=== PATIENT | female | born 1985 | race Caucasian/White ===

== ENCOUNTER 2016-07-20 03:46 | Inpatient (IN) | payer MEDICAID ==
[2016-07-20] MEDS ORDERED: Sodium Chloride 0.9% 10 ML Syringe FLUSH PRN (17:36)
[2016-07-20] MEDS ORDERED: Ondansetron 4 MG/2 ML SDV IVPUSH PRN (17:36)
[2016-07-20] MEDS ORDERED: Nalbuphine 20 MG/1 ML Amp IVPUSH PRN (17:36)
[2016-07-20] MEDS: Lactated Ringers 1,000 ML IV SCH ×2 (18:19→19:56)
--- NOTE | 2016-07-20 18:41 | PCM.LDHP ---
L&D History of Present Illness - General Date of Service: 07/20/16 Admit Problem/Dx: Admission Diagnosis/Problem Admission Diagnosis/Problem Source of Information: Patient - History of Present Illness Introduction:: 30 year old female at 38w3 days here in labor with SROM clear fluid at about 10 pm. Contractions increasingly painful. No bleeding. - Related Data Allergies/Adverse Reactions: Allergies Allergy/AdvReac Type Severity Reaction Status Date / Time Penicillins Allergy Anaphylactic Verified 07/17/16 22:14 Shock Home Medications: Home Meds Abilify 2.5mg 2.5 mg PO DAILY 01/07/14 [History] Methylphenidate HCl [Ritalin] 54 mg PO DAILY 01/07/14 [History] traZODone 50 mg PO DAILY 10/13/15 [History] Past Medical History Psychiatric History: Reports: Developmental delay - Infectious Disease History Infectious Disease History: Reports: Chicken pox, Influenza - Past Surgical History HEENT Surgical History: Reports: Tonsillectomy, Other (see below) Other HEENT Surgeries/Procedures: nose surg GI Surgical History: Reports: Appendectomy Social & Family History - Tobacco Use Smoking Status *Q: Former Smoker Years of Tobacco use: 13 Packs/Tins Daily: 1 Used Tobacco, but Quit: Yes Month Tobacco Last Used: august Second Hand Smoke Exposure: No - Alcohol Use Days Per Week of Alcohol Use: 3 Number of Drinks Per Day: 3 Total Drinks Per Week: 9 - Recreational Drug Use Recreational Drug Use: No H&P Review of Systems - Review of Systems: Review Of Systems: See Below General: Reports: no symptoms HEENT: Reports: no symptoms Pulmonary: Reports: No Symptoms Cardiovascular: Reports: no symptoms Gastrointestinal: Reports: No symptoms Genitourinary: Reports: no symptoms Musculoskeletal: Reports: no symptoms Skin: Reports: no symptoms Psychiatric: Reports: no symptoms Neurological: Reports: No Symptoms Hematologic/Lymphatic: Reports: no symptoms Immunologic: Reports: no symptoms L&D Exam - Exam Exam: See Below - Vital Signs Vital Signs: Last Vital Signs Temp 37.2 C 07/20/16 17:36 Pulse 76 07/20/16 17:36 Resp 20 07/20/16 17:36 BP 113/77 07/20/16 17:36 Pulse Ox Weight: 64.093 kg - OB Specific Contraction Intensity: Moderate Heart Rate (FHR) Variability: Moderate (6-25 bmp) Presentation: Vertex - Andrews Score Andrews Score Cervix Position: Midposition Andrews Score Consistency: Soft Andrews Score Effacement: >80% Andrews Score Dilation: 3-4 cm Andrews Score 's Station: -2 Andrews Score Total: 9 - Exam General: alert, oriented HEENT: Conjunctiva clear Neck: supple Lungs: Clear to auscultation Cardiovascular: regular rate, regular rhythm Abdomen: normal bowel sounds, soft Genitourinary: Normal external exam Back Exam: normal inspection, full range of motion Extremities: normal inspection Skin: warm, dry, intact Neurological: cranial nerves intact, reflexes equal bilateral Psychiatric: alert, normal affect, normal mood Problem List Initiated/Reviewed/Updated: Yes Orders Last 24hrs: Active Orders 24 hr Category Date Time Status Activity as Tolerated [RC] PFP Care 07/20/16 17:36 Active Communication Order [RC] ASDIRECTED Care 07/20/16 17:36 Active Heart Tones [RC] ASDIRECTED Care 07/20/16 17:36 Active Notify Provider [RC] PFP Care 07/20/16 17:36 Active Notify Provider [RC] PRN Care 07/20/16 17:36 Active Peripheral IV Care [RC] . DIRECTED Care 07/20/16 17:36 Active Vital Signs [RC] PER UNIT ROUTINE Care 07/20/16 17:36 Active Clear Liquid Diet [DIET] Diet 07/20/16 Dinner Active CBC WITH AUTO DIFF [HEME] Urgent Lab 07/20/16 17:36 Ordered Lactated Ringers [Ringers, Lactated] 1,000 ml Med 07/20/16 17:45 Active IV ASDIRECTED Nalbuphine [Nubain] Med 07/20/16 17:36 Active 10 mg IVPUSH Q2H PRN Ondansetron [Zofran] Med 07/20/16 17:36 Active 4 mg IVPUSH Q4H PRN Sodium Chloride 0.9% [Saline Flush] Med 07/20/16 17:36 Active 10 ml FLUSH ASDIRECTED PRN Vancomycin [Vancocin] 1 gm Med 07/20/16 18:00 Active Sodium Chloride 0.9% [Normal Saline] 250 ml IV Q12H Electronic Heart Tones Ext w TOCO [WOMSER] Oth 07/20/16 17:36 Ordered Routine Electronic Heart Tones Internal [WOMSER] Per Unit Oth 07/20/16 17:36 Ordered Routine Peripheral IV Insertion Adult [OM.PC] Routine Oth 07/20/16 17:36 Ordered Resuscitation Status Routine Resus Stat 07/20/16 17:36 Ordered Medication Orders Lactated Ringer's (Ringers, Lactated) 1,000 mls @ 100 mls/hr IV ASDIRECTED RADHA Last Admin: 07/20/16 18:19 Dose: 100 mls/hr Vancomycin HCl 1 gm/ Sodium (Chloride) 250 mls @ 250 mls/hr IV Q12H [facility] Last Admin: 07/20/16 18:20 Dose: 250 mls/hr Nalbuphine HCl (Nubain) 10 mg IVPUSH Q2H PRN PRN Reason: Pain (moderate 4-6) Ondansetron HCl (Zofran) 4 mg IVPUSH Q4H PRN PRN Reason: Nausea/Vomiting Sodium Chloride (Saline Flush) 10 ml FLUSH ASDIRECTED PRN PRN Reason: Keep Vein Open Assessment/Plan Comment:: Term labor SROM GBS positive antibiotics started Anticipate unless otherwise indicated
[2016-07-20] MEDS ORDERED: fentaNYL 100 MCG/2 ML SDV EPIDUR PRN (19:28)
[2016-07-20] MEDS ORDERED: diphenhydrAMINE 50 MG/ML SDV IVPUSH PRN (19:28)
[2016-07-20] MEDS ORDERED: ePHEDrine 50 MG/ML SDV IVPUSH PRN (19:28)
[2016-07-20] MEDS: Bupivacaine/fentaNYL/NS 100 ML Bag EPIDUR SCH (19:50)
--- NOTE | 2016-07-20 20:02 | PCM.PREANE ---
Preanesthetic Assessment - Physical Assessment Respiratory Rate: 20 Vital Signs: Last Vital Signs Temp 37.2 C 07/20/16 17:36 Pulse 76 07/20/16 17:36 Resp 20 07/20/16 17:36 BP 113/77 07/20/16 17:36 Pulse Ox Height: 1.68 m Weight: 64.093 kg - Lab Values: Laboratory Last Values WBC 12.51 K/mm3 (3.98-10.04) H 07/20/16 18:35 RBC 4.25 M/mm3 (3.98-5.22) 07/20/16 18:35 Hgb 12.3 gm/L (11.2-15.7) 07/20/16 18:35 Hct 36.6 % (34.1-44.9) 07/20/16 18:35 MCV 86.1 fl (79.4-94.8) 07/20/16 18:35 MCH 28.9 pg (25.6-32.2) 07/20/16 18:35 MCHC 33.6 g/dl (32.2-35.5) 07/20/16 18:35 RDW Std Deviation 39.7 fL (36.4-46.3) 07/20/16 18:35 Plt Count 353 K/mm3 (182-369) 07/20/16 18:35 MPV 8.9 fl (9.4-12.3) L 07/20/16 18:35 Neut % (Auto) 69.7 % (34.0-71.1) 07/20/16 18:35 Lymph % (Auto) 21.9 % (19.3-51.7) 07/20/16 18:35 [place] % (Auto) 7.4 % (4.7-12.5) 07/20/16 18:35 Eos % (Auto) 0.6 (0.7-5.8) L 07/20/16 18:35 Baso % (Auto) 0.2 % (0.1-1.2) 07/20/16 18:35 Neut # (Auto) 8.73 K/mm3 (1.56-6.13) H 07/20/16 18:35 Lymph # (Auto) 2.74 K/mm3 (1.18-3.74) 07/20/16 18:35 [place] # (Auto) 0.92 K/mm3 (0.24-0.36) H 07/20/16 18:35 Eos # (Auto) 0.07 K/mm3 (0.04-0.36) 07/20/16 18:35 Baso # (Auto) 0.02 K/mm3 (0.01-0.08) 07/20/16 18:35 Urine Opiates Screen Presumptive positive (NEGATIVE) H 07/20/16 18:40 Ur Buprenorphine Scrn Negative (NEGATIVE) 07/20/16 18:40 Ur Oxycodone Screen Negative (NEGATIVE) 07/20/16 18:40 Urine Methadone Screen Negative (NEGATIVE) 07/20/16 18:40 Ur Propoxyphene Screen Negative (NEGATIVE) 07/20/16 18:40 Ur Barbiturates Screen Negative (NEGATIVE) 07/20/16 18:40 Ur Tricyclics Screen Negative (NEGATIVE) 07/20/16 18:40 Ur Phencyclidine Scrn Negative (NEGATIVE) 07/20/16 18:40 Ur Amphetamine Screen Negative (NEGATIVE) 07/20/16 18:40 U Methamphetamines Scrn Negative (NEGATIVE) 07/20/16 18:40 U Benzodiazepines Scrn Negative (NEGATIVE) 07/20/16 18:40 U Cocaine Metab Screen Negative (NEGATIVE) 07/20/16 18:40 U Marijuana (THC) Screen Negative (NEGATIVE) 07/20/16 18:40 - Allergies Allergies/Adverse Reactions: Allergies Allergy/AdvReac Type Severity Reaction Status Date / Time Penicillins Allergy Anaphylactic Verified 07/17/16 22:14 Shock PreAnesthesia Questionnaire Psychiatric History: Reports: Developmental delay - Infectious Disease History Infectious Disease History: Reports: Chicken pox, Influenza - Past Surgical History HEENT Surgical History: Reports: Tonsillectomy, Other (see below) Other HEENT Surgeries/Procedures: nose surg GI Surgical History: Reports: Appendectomy - SUBSTANCE USE Smoking Status *Q: Former Smoker Tobacco Use Within Last Twelve Months: Cigarettes Second Hand Smoke Exposure: No Days Per Week of Alcohol Use: 3 Number of Drinks Per Day: 3 Total Drinks Per Week: 9 Recreational Drug Use History: No Recreational Drug Type: Reports: Marijuana/Hashish Recreational Drug Last Use: october - HOME MEDS Home Medications: Home Meds Acetaminophen with Codeine [Tylenol with Codeine #3 Tablet] 1 each PO PRN [History] PNV95/Ferrous Fumarate/FA [ Tablet] 1 each PO DAILY 07/20/16 [History] Zolpidem [Ambien] 10 mg PO BEDTIME PRN 07/20/16 [History] - CURRENT (IN HOUSE) MEDS Current Meds: Current Medications Diphenhydramine HCl (Benadryl) 25 mg IVPUSH Q6H PRN PRN Reason: Itching Ephedrine Sulfate (Ephedrine Sulfate) 5 mg IVPUSH ASDIRECTED PRN PRN Reason: HYPOTENTSION Fentanyl (Sublimaze) 100 mcg EPIDUR Q3H PRN PRN Reason: PAIN Last Admin: 07/20/16 19:49 Dose: 100 mcg Fentanyl/Bupivacaine HCl (Fentanyl/Bupivacaine/Ns 2 Mcg-0.125% 100 Ml) 100 ml EPIDUR ASDIRECTED RADHA Last Admin: 07/20/16 19:50 Dose: 100 ml Lactated Ringer's (Ringers, Lactated) 1,000 mls @ 100 mls/hr IV ASDIRECTED RADHA Last Admin: 07/20/16 19:56 Dose: 100 mls/hr Vancomycin HCl 1 gm/ Sodium (Chloride) 250 mls @ 250 mls/hr IV Q12H RADHA Last Admin: 07/20/16 18:20 Dose: 250 mls/hr Nalbuphine HCl (Nubain) 10 mg IVPUSH Q2H PRN PRN Reason: Pain (moderate 4-6) Ondansetron HCl (Zofran) 4 mg IVPUSH Q4H PRN PRN Reason: Nausea/Vomiting Sodium Chloride (Saline Flush) 10 ml FLUSH ASDIRECTED PRN PRN Reason: Keep Vein Open Preanesthetic Assessment - ANESTHESIA/TRANSFUSION/FAMILY HX Anesthesia/Transfusion History: No Prior Anesthesia, No Prior Transfusion(s) Family History of Anesthesia Reaction: No - REVIEW OF SYSTEMS Constitutional: Reports: no symptoms JUICE SCALEMAN: Reports: numbness (shahla hands) Respiratory: Reports: no symptoms Cardiovascular: Reports: no symptoms GI: Reports: no symptoms Other: Reports: None - PHYSICAL ASSESSMENT HR: 76 O2 Sat by Pulse Oximetry: 3 RR: 20 BP: 113/77 Temp: 37.2 C Vital Signs: Last Vital Signs Temp 37.2 C 07/20/16 17:36 Pulse 76 07/20/16 17:36 Resp 20 07/20/16 17:36 BP 113/77 07/20/16 17:36 Pulse Ox Height: 1.68 m Weight: 64.093 kg ASA Class: 2 Mental Status: Alert & Oriented x3 Airway Class: Mallampati = 1 Dentition: Reports: Normal Dentition Thyro-Mental Finger Breadths: 3 Mouth Opening Finger Breadths: 3 ROM/Head Extension: Full Respiratory Status: lungs clear to auscultation bilaterally Cardiovascular Status: regular rate & rhythm, normal S1, S2, no murmur, blood pressure WNL - LAB Values: Laboratory Last Values WBC 12.51 K/mm3 (3.98-10.04) H 07/20/16 18:35 RBC 4.25 M/mm3 (3.98-5.22) 07/20/16 18:35 Hgb 12.3 gm/L (11.2-15.7) 07/20/16 18:35 Hct 36.6 % (34.1-44.9) 07/20/16 18:35 MCV 86.1 fl (79.4-94.8) 07/20/16 18:35 MCH 28.9 pg (25.6-32.2) 07/20/16 18:35 MCHC 33.6 g/dl (32.2-35.5) 07/20/16 18:35 RDW Std Deviation 39.7 fL (36.4-46.3) 07/20/16 18:35 Plt Count 353 K/mm3 (182-369) 07/20/16 18:35 MPV 8.9 fl (9.4-12.3) L 07/20/16 18:35 Neut % (Auto) 69.7 % (34.0-71.1) 07/20/16 18:35 Lymph % (Auto) 21.9 % (19.3-51.7) 07/20/16 18:35 [place] % (Auto) 7.4 % (4.7-12.5) 07/20/16 18:35 Eos % (Auto) 0.6 (0.7-5.8) L 07/20/16 18:35 Baso % (Auto) 0.2 % (0.1-1.2) 07/20/16 18:35 Neut # (Auto) 8.73 K/mm3 (1.56-6.13) H 07/20/16 18:35 Lymph # (Auto) 2.74 K/mm3 (1.18-3.74) 07/20/16 18:35 [place] # (Auto) 0.92 K/mm3 (0.24-0.36) H 07/20/16 18:35 Eos # (Auto) 0.07 K/mm3 (0.04-0.36) 07/20/16 18:35 Baso # (Auto) 0.02 K/mm3 (0.01-0.08) 07/20/16 18:35 Urine Opiates Screen Presumptive positive (NEGATIVE) H 07/20/16 18:40 Ur Buprenorphine Scrn Negative (NEGATIVE) 07/20/16 18:40 Ur Oxycodone Screen Negative (NEGATIVE) 07/20/16 18:40 Urine Methadone Screen Negative (NEGATIVE) 07/20/16 18:40 Ur Propoxyphene Screen Negative (NEGATIVE) 07/20/16 18:40 Ur Barbiturates Screen Negative (NEGATIVE) 07/20/16 18:40 Ur Tricyclics Screen Negative (NEGATIVE) 07/20/16 18:40 Ur Phencyclidine Scrn Negative (NEGATIVE) 07/20/16 18:40 Ur Amphetamine Screen Negative (NEGATIVE) 07/20/16 18:40 U Methamphetamines Scrn Negative (NEGATIVE) 07/20/16 18:40 U Benzodiazepines Scrn Negative (NEGATIVE) 07/20/16 18:40 U Cocaine Metab Screen Negative (NEGATIVE) 07/20/16 18:40 U Marijuana (THC) Screen Negative (NEGATIVE) 07/20/16 18:40 - ALLERGIES Allergies/Adverse Reactions: Allergies Allergy/AdvReac Type Severity Reaction Status Date / Time Penicillins Allergy Anaphylactic Verified 07/17/16 22:14 Shock - ANESTHESIA PLAN Preop Beta Phillip: No Anesthesia Type Planned: Epidural - ACKNOWLEDGEMENTS Pt an Appropriate Candidate for the Planned Anesthesia: Yes Alternatives and Risks of Anesthesia Discussed w Pt/Guardian: Yes Pt/Guardian Understands and Agrees with Anesthesia Plan: Yes
[2016-07-20] MEDS ORDERED: Oxytocin/Lactated Ringers 10 UNIT/1,000 ML BAG IV ONE (22:33)
[2016-07-20] MEDS ORDERED: Oxytocin/Lactated Ringers 10 UNIT/1,000 ML BAG IV SCH ×2 (22:45)
[2016-07-21] MEDS: Lactated Ringers 1,000 ML IV SCH ×2 (00:27→01:49)
[2016-07-21] MEDS: Bupivacaine/fentaNYL/NS 100 ML Bag EPIDUR SCH (01:49)
--- NOTE | 2016-07-21 04:19 | PCM.DEL ---
L & D Note - General Info Date of Service: 07/21/16 - Delivery Note Labor: spontaneous, augmented by oxytocin Delivery Outcome: Livebirth Infant Delivery Method: Spontaneous Vaginal Delivery Delivery Mode: Vacuum Extraction (three pulls over one contraction, one tack puller next contraction) Presentation: Vertex Nuchal cord: none Anesthesia Type: Epidural Amniotic Fluid Description: Clear Episiotomy Type: None Laceration: 2nd degree Suture type: vicryl Suture size: 3-0 Placenta: intact, spontaneous Cord: 3 vessels Estimated blood loss: 150 Resuscitation needed: No Score 1 min: 8 Score 5 min: 9 Delivery Comments (Free Text/Narrative):: After 2.5 hours of pushing patient exhausted, stating she can't do it anymore and requesting some assistance. Discussed R/B/A to vacuum including but not limited to cephalohematoma, intracranial hemorrhage and maternal lacerations. Patient and significant other express desire to proceed. Bladder emptied. MORRO. +4/5 station. [place] vacuum placed without difficulty and head delivered with combination of maternal expulsive efforts and gentle traction over three pushes in one contraction and one additional push with next contraction. Body and shoulders followed without difficulty. Baby placed on maternal abdomen. Cord clamped and cut. Cord blood collected. Placenta delivered spontaneously and intact. - Patient Data Vitals - most recent: Last Vital Signs Temp 37.2 C 07/20/16 20:02 Pulse 76 07/20/16 20:02 Resp 20 07/20/16 20:02 BP 113/77 07/20/16 20:02 Pulse Ox 3 L 07/20/16 20:02 Weight - most recent: 64.093 kg I&O - last 24 hours: Intake & Output 07/20/16 07/20/16 07/21/16 14:59 22:59 06:59 Intake Total 1250 1000 Balance 1250 1000 Lab Results last 24 hrs: Laboratory Results - last 24 hr 07/20/16 07/20/16 Range/Units 18:35 18:40 WBC 12.51 H (3.98-10.04) K/mm3 RBC 4.25 (3.98-5.22) M/mm3 Hgb 12.3 (11.2-15.7) gm/L Hct 36.6 (34.1-44.9) % MCV 86.1 (79.4-94.8) fl MCH 28.9 (25.6-32.2) pg MCHC 33.6 (32.2-35.5) g/dl RDW Std Deviation 39.7 (36.4-46.3) fL Plt Count 353 (182-369) K/mm3 MPV 8.9 L (9.4-12.3) fl Neut % (Auto) 69.7 (34.0-71.1) % Lymph % (Auto) 21.9 (19.3-51.7) % [place] % (Auto) 7.4 (4.7-12.5) % Eos % (Auto) 0.6 L (0.7-5.8) Baso % (Auto) 0.2 (0.1-1.2) % Neut # (Auto) 8.73 H (1.56-6.13) K/mm3 Lymph # (Auto) 2.74 (1.18-3.74) K/mm3 [place] # (Auto) 0.92 H (0.24-0.36) K/mm3 Eos # (Auto) 0.07 (0.04-0.36) K/mm3 Baso # (Auto) 0.02 (0.01-0.08) K/mm3 Urine Opiates Screen Presumptive positive H (NEGATIVE) Ur Buprenorphine Scrn Negative (NEGATIVE) Ur Oxycodone Screen Negative (NEGATIVE) Urine Methadone Screen Negative (NEGATIVE) Ur Propoxyphene Screen Negative (NEGATIVE) Ur Barbiturates Screen Negative (NEGATIVE) Ur Tricyclics Screen Negative (NEGATIVE) Ur Phencyclidine Scrn Negative (NEGATIVE) Ur Amphetamine Screen Negative (NEGATIVE) U Methamphetamines Scrn Negative (NEGATIVE) U Benzodiazepines Scrn Negative (NEGATIVE) U Cocaine Metab Screen Negative (NEGATIVE) U Marijuana (THC) Screen Negative (NEGATIVE) Med Orders - Current: Current Medications Diphenhydramine HCl (Benadryl) 25 mg IVPUSH Q6H PRN PRN Reason: Itching Ephedrine Sulfate (Ephedrine Sulfate) 5 mg IVPUSH ASDIRECTED PRN PRN Reason: HYPOTENTSION Fentanyl (Sublimaze) 100 mcg EPIDUR Q3H PRN PRN Reason: PAIN Last Admin: 07/20/16 19:49 Dose: 100 mcg Fentanyl/Bupivacaine HCl (Fentanyl/Bupivacaine/Ns 2 Mcg-0.125% 100 Ml) 100 ml EPIDUR ASDIRECTED RADHA Last Admin: 07/21/16 01:49 Dose: 100 ml Lactated Ringer's (Ringers, Lactated) 1,000 mls @ 100 mls/hr IV ASDIRECTED RADHA Last Admin: 07/21/16 01:49 Dose: 100 mls/hr Vancomycin HCl 1 gm/ Sodium (Chloride) 250 mls @ 250 mls/hr IV Q12H RADHA Last Admin: 07/20/16 18:20 Dose: 250 mls/hr Oxytocin/Lactated Ringer's (Pitocin In Lr 10 Units/1,000 Ml) 10 unit in 1,000 mls @ 500 mls/hr IV TITRATE RADHA PRN Reason: Protocol Oxytocin/Lactated Ringer's (Pitocin In Lr 10 Units/1,000 Ml) 10 unit in 1,000 mls @ 12 mls/hr IV TITRATE RADHA; 2 MUNITS/MIN PRN Reason: Protocol Last Titration: 07/21/16 00:37 Dose: 1 munits/min, 6 mls/hr Nalbuphine HCl (Nubain) 10 mg IVPUSH Q2H PRN PRN Reason: Pain (moderate 4-6) Ondansetron HCl (Zofran) 4 mg IVPUSH Q4H PRN PRN Reason: Nausea/Vomiting Sodium Chloride (Saline Flush) 10 ml FLUSH ASDIRECTED PRN PRN Reason: Keep Vein Open Discontinued Medications Oxytocin/Lactated Ringer's (Pitocin In Lr 10 Units/1,000 Ml) Confirm Administered Dose 10 unit in 1,000 mls @ as directed IV .STK-MED ONE Stop: 07/20/16 22:34 Last Admin: 07/20/16 23:38 Dose: Not Given - Problem List Review Problem List Initiated/Reviewed/Updated: Yes - My Orders Last 24 Hours: My Active Orders 07/20/16 17:36 Activity as Tolerated [RC] PFP Communication Order [RC] ASDIRECTED Heart Tones [RC] ASDIRECTED Notify Provider [RC] PFP Notify Provider [RC] PRN Peripheral IV Care [RC] . DIRECTED Vital Signs [RC] PER UNIT ROUTINE Nalbuphine [Nubain] 10 mg IVPUSH Q2H PRN Ondansetron [Zofran] 4 mg IVPUSH Q4H PRN Sodium Chloride 0.9% [Saline Flush] 10 ml FLUSH ASDIRECTED PRN Electronic Heart Tones Ext w TOCO [WOMSER] Routine Electronic Heart Tones Internal [WOMSER] Per Unit Routine Peripheral IV Insertion Adult [OM.PC] Routine Resuscitation Status Routine 07/20/16 17:45 Lactated Ringers [Ringers, Lactated] 1,000 ml IV ASDIRECTED 07/20/16 18:00 Vancomycin [Vancocin] 1 gm Sodium Chloride 0.9% [Normal Saline] 250 ml IV Q12H 07/20/16 22:45 Oxytocin/Lactated Ringers [Pitocin in LR 10 Units/1,000 ML] 10 unit in 1,000 ml IV TITRATE Oxytocin/Lactated Ringers [Pitocin in LR 10 Units/1,000 ML] 10 unit in 1,000 ml IV TITRATE 07/20/16 Dinner Clear Liquid Diet [DIET] - Assessment Assessment:: Term labor - Plan Plan:: PPD0. Doing great.
[2016-07-21] MEDS ORDERED: Docusate Sodium 100 MG Cap PO PRN (05:07)
[2016-07-21] MEDS ORDERED: Witch Hazel Medicated Pads 100/Jar TOP PRN (05:07)
[2016-07-21] MEDS ORDERED: Lanolin 100% Cream 7 GM Tube TOP PRN (05:07)
[2016-07-21] MEDS ORDERED: Benzocaine/Menthol 20%-0.5% Spray 56 GM Canister TOP PRN (05:07)
[2016-07-21] MEDS: Ibuprofen 600 MG Tab PO PRN ×3 (06:51→22:09)
[2016-07-21] MEDS ORDERED: Bupivacaine 0.25% 10 ML SDV ONE (19:00)
[2016-07-21] MEDS: Acetaminophen 325 MG Tab PO PRN (20:41)
--- NOTE | 2016-07-22 08:27 | PCM.PNPP ---
- General Info Date of Service: 07/22/16 Functional Status: Reports: pain controlled - Review of Systems General: Reports: No Symptoms HEENT: Reports: no symptoms Pulmonary: Reports: no symptoms Cardiovascular: Reports: No Symptoms Gastrointestinal: Reports: No symptoms Genitourinary: Reports: no symptoms Musculoskeletal: Reports: no symptoms Skin: Reports: no symptoms Neurological: Reports: No Symptoms Psychiatric: Reports: no symptoms - General Info Date of Service: 07/22/16 - Patient Data Vital Signs - most recent: Last Vital Signs Temp 37.1 C 07/22/16 05:57 Pulse 71 07/22/16 05:57 Resp 18 07/22/16 05:57 BP 101/80 07/22/16 05:57 Pulse Ox 98 07/22/16 05:57 Weight - most recent: 64.093 kg I&O - last 24 hours: Intake & Output 07/21/16 07/22/16 07/22/16 22:59 06:59 14:59 Intake Total 2 Balance 2 Lab Results - last 24 hrs: Laboratory Results - last 24 hr 07/21/16 Range/Units 08:18 Blood Type A NEGATIVE Gel Antibody Screen Positive Screen 0 ros/5 flds - neg RhIG Candidate? Yes Rhogam Indicated Yes, baby rh pos H Med Orders - Current: Current Medications Acetaminophen (Tylenol) 650 mg PO Q4H PRN PRN Reason: mild pain or fever Last Admin: 07/21/16 20:41 Dose: 650 mg Benzocaine/Menthol (Dermoplast Pain Relief [place]) 0 gm TOP ASDIRECTED PRN PRN Reason: Perineal Comfort Measure Last Admin: 07/21/16 06:15 Dose: 1 can Docusate Sodium (Colace) 100 mg PO BID PRN PRN Reason: Constipation Emollient Ointment (Lansinoh Hpa) 0 gm TOP ASDIRECTED PRN PRN Reason: Sore Nipples Last Admin: 07/22/16 03:13 Dose: 1 unit Ibuprofen (Motrin) 600 mg PO Q6H PRN PRN Reason: Mild pain or fever Last Admin: 07/21/16 22:09 Dose: 600 mg Witch Tali (Tucks) 1 pad TOP ASDIRECTED PRN PRN Reason: Hemorrhoid pain Last Admin: 07/21/16 06:15 Dose: 1 tub Discontinued Medications Diphenhydramine HCl (Benadryl) 25 mg IVPUSH Q6H PRN PRN Reason: Itching Ephedrine Sulfate (Ephedrine Sulfate) 5 mg IVPUSH ASDIRECTED PRN PRN Reason: HYPOTENTSION Fentanyl (Sublimaze) 100 mcg EPIDUR Q3H PRN PRN Reason: PAIN Last Admin: 07/20/16 19:49 Dose: 100 mcg Fentanyl/Bupivacaine HCl (Fentanyl/Bupivacaine/Ns 2 Mcg-0.125% 100 Ml) 100 ml EPIDUR ASDIRECTED RADHA Last Admin: 07/21/16 01:49 Dose: 100 ml Lactated Ringer's (Ringers, Lactated) 1,000 mls @ 100 mls/hr IV ASDIRECTED RADHA Last Admin: 07/21/16 01:49 Dose: 100 mls/hr Vancomycin HCl 1 gm/ Sodium (Chloride) 250 mls @ 250 mls/hr IV Q12H RADHA Last Admin: 07/20/16 18:20 Dose: 250 mls/hr Oxytocin/Lactated Ringer's (Pitocin In Lr 10 Units/1,000 Ml) 10 unit in 1,000 mls @ 500 mls/hr IV TITRATE RADHA PRN Reason: Protocol Oxytocin/Lactated Ringer's (Pitocin In Lr 10 Units/1,000 Ml) 10 unit in 1,000 mls @ 12 mls/hr IV TITRATE RADHA; 2 MUNITS/MIN PRN Reason: Protocol Last Titration: 07/21/16 04:15 Dose: 250 mls/hr Oxytocin/Lactated Ringer's (Pitocin In Lr 10 Units/1,000 Ml) Confirm Administered Dose 10 unit in 1,000 mls @ as directed IV .STK-MED ONE Stop: 07/20/16 22:34 Last Admin: 07/20/16 23:38 Dose: Not Given Nalbuphine HCl (Nubain) 10 mg IVPUSH Q2H PRN PRN Reason: Pain (moderate 4-6) Ondansetron HCl (Zofran) 4 mg IVPUSH Q4H PRN PRN Reason: Nausea/Vomiting Sodium Chloride (Saline Flush) 10 ml FLUSH ASDIRECTED PRN PRN Reason: Keep Vein Open - Interaction Disposition, : [place] at Bedside Support Person: Significant Other - Recovery Exam Fundal Tone: Firm Fundal Level: At Umbilicus Fundal Placement: Right Lochia Amount: Moderate Lochia Color: Rubra/Red Perineum Description: Edematous Episiotomy/Laceration: Approximated Bladder Status: Voiding Urinary Elimination: Voided - Exam General: alert, oriented HEENT: Pupils equal Neck: supple Lungs: Clear to auscultation, Normal respiratory effort Cardiovascular: Regular Rate, Regular Rhythm Abdomen: bowel sounds present, soft, no tenderness, no distension Extremities: no edema Skin: warm, dry, intact Wound/Incisions: healing well Neurological: no new focal deficit Psy/Mental Status: alert, normal affect, normal mood - Problem List Review Problem List Initiated/Reviewed/Updated: Yes - My Orders Last 24 Hours: My Active Orders 07/21/16 08:18 ANTIBODY IDENTIFICATION [BBK] Routine SCREEN [BBK] Routine PATIENT RETYPE [BBK] Routine RHOGAM, [RHIG WORKUP, ] [BBK] Routine 07/22/16 05:07 Heat Therapy [OM.PC] PRN - Assessment Assessment:: Term delivery. Doing well. Home tomorrow. - Plan Plan:: PPD1. Doing great. HOme tomorrow.
[2016-07-22] MEDS: Ibuprofen 600 MG Tab PO PRN ×2 (10:51→18:20)
[2016-07-22] MEDS: Acetaminophen 325 MG Tab PO PRN (15:47)
[2016-07-23] MEDS: Ibuprofen 600 MG Tab PO PRN (02:26)
[2016-07-23] MEDS: Acetaminophen 325 MG Tab PO PRN (06:43)
--- NOTE | 2016-07-23 09:03 | PCM.DCSUM1 ---
Discharge Summary - Hospital Course Brief History: Term SROM. Normal labor and delivery and course. No complications. - Discharge Data Discharge Date: 07/23/16 Discharge Disposition: Home, Self-Care 01 Condition: Good - Patient Instructions Diet: Usual Diet as Tolerated Activity: No Strenuous Activities, Rest and Relax Today Activity, Other: pelvic rest Driving: May Drive Today Notify Provider of: Fever, Increased Pain, Swelling and Redness, Drainage, Nausea and/or Vomiting - Discharge Plan Home Medications: Home Meds Acetaminophen with Codeine [Tylenol with Codeine #3 Tablet] 1 each PO PRN [History] PNV95/Ferrous Fumarate/FA [ Tablet] 1 each PO DAILY 07/20/16 [History] Zolpidem [Ambien] 10 mg PO BEDTIME PRN 07/20/16 [History] Patient Handouts: Smoking Cessation, Tips for Success, [id number], Smoking Hazards - Discharge Summary/Plan Comment DC Time >30 min.: No - General Info Date of Service: 07/23/16 Functional Status: Reports: pain controlled - Review of Systems General: Reports: No Symptoms HEENT: Reports: no symptoms Pulmonary: Reports: no symptoms Cardiovascular: Reports: No Symptoms Gastrointestinal: Reports: No symptoms Genitourinary: Reports: no symptoms Musculoskeletal: Reports: no symptoms Skin: Reports: no symptoms Neurological: Reports: No Symptoms Psychiatric: Reports: no symptoms - Patient Data Vitals - Most Recent: Last Vital Signs Temp 36.8 C 07/23/16 06:28 Pulse 75 07/23/16 06:28 Resp 16 07/23/16 06:28 BP 118/72 07/23/16 06:28 Pulse Ox 95 07/23/16 06:28 Weight - Most Recent: 64.093 kg Med Orders - Current: Current Medications Acetaminophen (Tylenol) 650 mg PO Q4H PRN PRN Reason: mild pain or fever Last Admin: 07/23/16 06:43 Dose: 650 mg Benzocaine/Menthol (Dermoplast Pain Relief [place]) 0 gm TOP ASDIRECTED PRN PRN Reason: Perineal Comfort Measure Last Admin: 07/21/16 06:15 Dose: 1 can Docusate Sodium (Colace) 100 mg PO BID PRN PRN Reason: Constipation Emollient Ointment (Lansinoh Hpa) 0 gm TOP ASDIRECTED PRN PRN Reason: Sore Nipples Last Admin: 07/22/16 03:13 Dose: 1 unit Ibuprofen (Motrin) 600 mg PO Q6H PRN PRN Reason: Mild pain or fever Last Admin: 07/23/16 02:26 Dose: 600 mg Witch Tali (Tucks) 1 pad TOP ASDIRECTED PRN PRN Reason: Hemorrhoid pain Last Admin: 07/21/16 06:15 Dose: 1 tub Discontinued Medications Diphenhydramine HCl (Benadryl) 25 mg IVPUSH Q6H PRN PRN Reason: Itching Ephedrine Sulfate (Ephedrine Sulfate) 5 mg IVPUSH ASDIRECTED PRN PRN Reason: HYPOTENTSION Fentanyl (Sublimaze) 100 mcg EPIDUR Q3H PRN PRN Reason: PAIN Last Admin: 07/20/16 19:49 Dose: 100 mcg Fentanyl/Bupivacaine HCl (Fentanyl/Bupivacaine/Ns 2 Mcg-0.125% 100 Ml) 100 ml EPIDUR ASDIRECTED RADHA Last Admin: 07/21/16 01:49 Dose: 100 ml Lactated Ringer's (Ringers, Lactated) 1,000 mls @ 100 mls/hr IV ASDIRECTED RADHA Last Admin: 07/21/16 01:49 Dose: 100 mls/hr Vancomycin HCl 1 gm/ Sodium (Chloride) 250 mls @ 250 mls/hr IV Q12H RADHA Last Admin: 07/20/16 18:20 Dose: 250 mls/hr Oxytocin/Lactated Ringer's (Pitocin In Lr 10 Units/1,000 Ml) 10 unit in 1,000 mls @ 500 mls/hr IV TITRATE RADHA PRN Reason: Protocol Oxytocin/Lactated Ringer's (Pitocin In Lr 10 Units/1,000 Ml) 10 unit in 1,000 mls @ 12 mls/hr IV TITRATE RADHA; 2 MUNITS/MIN PRN Reason: Protocol Last Titration: 07/21/16 04:15 Dose: 250 mls/hr Oxytocin/Lactated Ringer's (Pitocin In Lr 10 Units/1,000 Ml) Confirm Administered Dose 10 unit in 1,000 mls @ as directed IV .STK-MED ONE Stop: 07/20/16 22:34 Last Admin: 07/20/16 23:38 Dose: Not Given Nalbuphine HCl (Nubain) 10 mg IVPUSH Q2H PRN PRN Reason: Pain (moderate 4-6) Ondansetron HCl (Zofran) 4 mg IVPUSH Q4H PRN PRN Reason: Nausea/Vomiting Sodium Chloride (Saline Flush) 10 ml FLUSH ASDIRECTED PRN PRN Reason: Keep Vein Open - Exam General: Reports: alert, oriented HEENT: Reports: Pupils equal, Pupils reactive, EOMI, Mucous membr. moist/pink Neck: Reports: supple Lungs: Reports: Clear to auscultation, Normal respiratory effort Cardiovascular: Reports: Regular Rate, Regular Rhythm Abdomen: Reports: bowel sounds present, soft, no tenderness, no distension (Female) Exam: Normal external exam, Normal bimanual exam Rectal (Female) Exam: Normal rectal tone Extremities: Reports: no edema, normal pulses Skin: Reports: warm, dry, intact Wound/Incisions: Reports: healing well Neurological: Reports: no new focal deficit Psy/Mental Status: Reports: alert, normal affect, normal mood *Q Meaningful Use (DIS) - VTE *Q VTE Criteria *Q: - Stroke *Q Stroke Criteria *Q: - AMI *Q AMI Criteria *Q:
[2016-07-23 10:38] VITALS: BP 128/82
== END 2016-07-23 10:15 | disposition home or self-care (01) | DRG 775 ==
LOC: JD.OB 03:46 → OBSVTOIN 07-21 03:46 → JD.OB 07-21 03:46
PROVIDERS: ADMIT Obstetrics & Gynecology; ATTEND Obstetrics & Gynecology
PROC: 10D07Z6 Extraction of Products of Conception, Vacuum, Via Natural or Artificial Opening (ICD-10-PCS; principal; 2016-07-21)
PROC: 0KQM0ZZ Repair Perineum Muscle, Open Approach (ICD-10-PCS; 2016-07-21)
PROC: 00HU33Z Insertion of Infusion Device into Spinal Canal, Percutaneous Approach (ICD-10-PCS; 2016-07-21)
PROC: 3E0R3CZ (ICD-10-PCS; 2016-07-21)
DX: O42.92 Full-term premature rupture of membranes, unspecified as to length of time between rupture and onset of labor (principal); O99.324 Drug use complicating childbirth; O99.824 Streptococcus B carrier state complicating childbirth; O70.1 Second degree perineal laceration during delivery; Z3A.38 38 weeks gestation of pregnancy; Z37.0 Single live birth; Z88.0 Allergy status to penicillin; Z87.891 Personal history of nicotine dependence; F11.90 Opioid use, unspecified, uncomplicated
CPT/HCPCS: 36415; 80306; 85025; 85461; 86850; 86870; 86900; 86901; A9270-GY; J2590; J2790; J3010; J3370; J7050; J7120